=== PATIENT | male | born 1985 | race Caucasian/White ===

== ENCOUNTER 2016-09-01 04:57 | Observation (INO) | payer MEDICAID ==
[~2016-09-01] VITALS: Ht 160 cm; Wt 70.8 kg
[2016-09-01] MEDS ORDERED: NALOXONE 2 MG SYG IV ONE (05:30)
[2016-09-01 05:40] LABS: ADD SCAN DIFF NO; BASOPHILS % 0.3 % (0.0-2.0); EOSINOPHILS # 0.1 10^3/ul (0.0-0.5); EOSINOPHILS % 0.8 % (0.0-7.0); HEMATOCRIT 46.6 % (42.0-52.0); HEMOGLOBIN 14.9 g/dl (14.0-18.0); LYMPHOCYTES % 14.7 % (15.0-51.0); MEAN CORPUSCULAR HEMOGLOBIN 28.7 pg (29.0-33.0); MEAN CORPUSCULAR VOLUME 89.8 fl (82.0-101.0); MEAN PLATELET VOLUME 10.9 fl (7.4-10.4); MONOCYTE # 0.8 10^3/ul (0.3-0.9); MONOCYTES % 6.1 % (0.0-11.0); NEUTROPHIL # 10.4 10^3/ul (1.6-7.5); NEUTROPHILS % 77.8 % (39.0-77.0); PLATELET COUNT 329 10^3/UL (140-415); RED BLOOD COUNT 5.19 10^6/ul (4.70-6.10); RED CELL DISTRIBUTION WIDTH 13.6 % (11.5-14.5); WHITE BLOOD COUNT 13.4 10^3/ul (4.8-10.8)
[2016-09-01 05:43] LABS: ADD UMIC NO; URINE BILIRUBIN (Dip) NEGATIVE (NEGATIVE); URINE BLOOD (Dip) NEGATIVE (NEGATIVE); URINE COLOR LT. YELLOW (YELLOW); URINE GLUCOSE (Dip) NEGATIVE (NEGATIVE); URINE KETONES (Dip) TRACE (NEGATIVE); URINE LEUKOCYTE ESTERASE (Dip) NEGATIVE (NEGATIVE); URINE NITRITE (Dip) NEGATIVE (NEGATIVE); URINE TOTAL PROTEIN (Dip) NEGATIVE (NEGATIVE); URINE UROBILINOGEN (Dip) 0.2 E.U./dL (0.1-1.0)
[2016-09-01 05:54] LABS: INR 1.02; PARTIAL THROMBOPLASTIN TIME 27.6 Sec (25.0-35.0); PROTIME 13.4 Sec (12.2-14.2)
[2016-09-01 06:19] LABS: ALBUMIN 4.5 g/dl (3.3-4.9)
[2016-09-01 06:20] LABS: CHLORIDE 104 mmol/L (97-110); POTASSIUM 4.2 mmol/L (3.5-5.1); SODIUM 146 mmol/L (135-144)
[2016-09-01 06:22] LABS: ALANINE AMINOTRANSFERASE 47 IU/L (13-69); ALBUMIN/GLOBULIN RATIO 1.02; ALKALINE PHOSPHATASE 125 IU/L (42-121); ANION GAP 28 (8-16); ASPARTATE AMINO TRANSFERASE 66 IU/L (15-46); BILIRUBIN,INDIRECT 0.4 mg/dl (0-1.1); BILIRUBIN,TOTAL 0.4 mg/dl (0.2-1.3); BLOOD UREA NITROGEN 25 mg/dl (7-20); CARBON DIOXIDE 18 mmol/L (21-31); CREATININE 1.15 mg/dl (0.61-1.24); TOTAL PROTEIN 8.9 g/dl (6.1-8.1)
[2016-09-01 06:23] LABS: CALCIUM 9.7 mg/dl (8.4-10.2); GLUCOSE 156 mg/dl (70-220)
[2016-09-01 06:26] LABS: ACETAMINOPHEN < 10.0 ug/ml (10.0-30.0); SALICYLATE < 1.0 mg/dl (5.0-30.0)
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
[2016-09-01] MEDS ORDERED: SOD CHLORIDE 0.9% 1,000 ML IV ONE ×2 (07:00→09:00)
--- NOTE | 2016-09-01 07:01 | RADRPT ---
PROCEDURE: CT brain without contrast. CLINICAL INDICATION: Altered level of consciousness. TECHNIQUE: CT scan of the brain was performed on a multi-detector high-resolution CT scanner. Co ntiguous axial images were obtained from the skull base to the vertex without intravenous contrast. Coronal and sagittal reformatted images were also obtained. Images were reviewed on the PACS works [employer]. One or more of the following dose reduction techniques were used: - Automated exposure control. - Adjustment of the mA and/or kV according to patient size. - Use of iterative reconstruction technique. Exam CTD/vol = 42.93 mGy. Total exam DLP = 720.23 mGy-cm. COMPARISON: None. FINDINGS: The ventricles and cortical sulci are within normal limits for patient's age. There are no areas of abnormal attenuation within the brain parenchyma. There is no mass effect or midline shift. There is no intracranial hemorrhage or abnormal extra-axial collection. There is a defect of the right frontal skull which could be postsurgical. There is no evidence of f racture. Visualized paranasal sinuses and mastoid air cells are clear. IMPRESSION: No acute intracranial abnormality identified. .Carmelo Roman MD, MD Date Time Electronically viewed and signed by .Carmelo Roman MD, MD on 09/01/2016 07:01 .T/
[2016-09-01 07:05] LABS: BARBITURATES Negative (NEGATIVE); BENZODIAZEPINES Negative (NEGATIVE); CANNABINOIDS Negative (NEGATIVE); COCAINE Negative (NEGATIVE); OPIATES Negative (NEGATIVE)
--- NOTE | 2016-09-01 07:13 | RADRPT ---
PROCEDURE: Chest. CLINICAL INDICATION: Chest pain. TECHNIQUE: Single frontal view of the chest was obtained. COMPARISON: None. FINDINGS: The cardiac silhouette is within normal limits. The aortic arch is unremarkable. There is no focal consolidation, vascular congestion or pleural effusion. There is no pneumothorax. IMPRESSION: No evidence for active cardiopulmonary disease. .Carmelo Roman MD, MD Date Time Electronically viewed and signed by .Carmelo Roman MD, on 09/01/2016 07:13 .T/
[2016-09-01] MEDS ORDERED: SOD CHLORIDE 0.9% IVPB ONE (07:30)
[2016-09-01] MEDS ORDERED: FOMEPIZOLE IVPB ONE (07:30)
[2016-09-01 10:43] LABS: CREATININE 0.78 mg/dl (0.61-1.24)
[2016-09-01 10:44] LABS: CALCIUM 7.7 mg/dl (8.4-10.2)
[2016-09-01 11:08] LABS: AADO2 Arterial 2.2 mmHg (7.0-24.0); Allen Test ACCEPTAB; Arterial Base Excess -8.5 mmol/L (-3.0-3); Arterial COHb 0.3 % (0.0-3.0); Arterial Fraction of Oxyhgb 96.3 % (93.0-99.0); Arterial HCO3 17.8 mmol/L (22.0-26.0); Arterial MetHb 0.3 % (0.0-1.5); MODE ROOM AIR
[2016-09-01] MEDS ORDERED: ONDANSETRON 4 MG INJ IV PRN ×2 (15:30→16:00)
[2016-09-01] MEDS ORDERED: ACETAMINOPHEN 325 MG TAB PO PRN ×2 (15:30→16:00)
[2016-09-01 16:00] VITALS: TEMP 98.1
[2016-09-01] MEDS ORDERED: HYDROCODONE/APAP (5/325) TAB PO PRN (16:00)
[2016-09-01] MEDS ORDERED: NACL 0.9% 3 ML SYG IV SCH (16:00)
[2016-09-01] MEDS ORDERED: LORAZEPAM 2 MG INJ IV PRN (16:00)
[2016-09-01] MEDS ORDERED: morphine 2 MG INJ IV PRN (16:00)
[2016-09-01] MEDS: SOD CHLORIDE 0.9% 1,000 ML IV SCH (16:12)
[2016-09-01 16:27] LABS: CREATININE 0.95 mg/dl (0.61-1.24)
[2016-09-01 16:28] LABS: CALCIUM 8.6 mg/dl (8.4-10.2); CHOL/HDL RATIO 2.7 RATIO
[2016-09-01 16:36] LABS: POTASSIUM 4.9 mmol/L (3.5-5.1)
[2016-09-01 16:45] LABS: CREATINE KINASE 228 IU/L (23-200); PHOSPHORUS 5.3 mg/dl (2.5-4.9)
[2016-09-01 16:46] LABS: MAGNESIUM 2.7 mg/dl (1.7-2.5)
[2016-09-01 16:56] LABS: B-TYPE NATRIURETIC PEPTIDE 18 PG/ML (0-125)
[2016-09-01 16:59] LABS: CK-MB 3.47 ng/ml (0.0-2.4)
[2016-09-01 17:00] LABS: TROPONIN-I < 0.012 ng/ml (0.00-0.12)
[2016-09-01 17:17] LABS: THYROID STIMULATING HORMONE 0.364 MIU/L (0.465-4.680)
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
[2016-09-01 20:20] VITALS: BP 132/80; RESP 19
[2016-09-01 20:21] VITALS: PULSE 76
[2016-09-01] MEDS: CHLORDIAZEPOXIDE 25 MG CAP PO SCH (21:00)
[2016-09-01 21:41] VITALS: Ht 160 cm; Wt 70.8 kg
[2016-09-02] VITALS (10 sets, daily range): BP systolic 102–134; BP diastolic 56–83; PULSE 76–92; RESP 18–20
[2016-09-02] MEDS: SOD CHLORIDE 0.9% 1,000 ML IV SCH ×2 (02:45→11:33)
[2016-09-02] MEDS: PANTOPRAZOLE (EC) 40 MG TAB PO SCH (06:37)
[2016-09-02 08:05] LABS: ADD SCAN DIFF NO
[2016-09-02 08:07] LABS: BASOPHILS % 0.4 % (0.0-2.0); EOSINOPHILS # 0.1 10^3/ul (0.0-0.5); EOSINOPHILS % 0.8 % (0.0-7.0); HEMATOCRIT 37.2 % (42.0-52.0); HEMOGLOBIN 11.9 g/dl (14.0-18.0); LYMPHOCYTES # 1.8 10^3/ul (0.8-2.9); LYMPHOCYTES % 23.4 % (15.0-51.0); MEAN CORPUSCULAR VOLUME 90.7 fl (82.0-101.0); MEAN PLATELET VOLUME 11.1 fl (7.4-10.4); MONOCYTE # 0.7 10^3/ul (0.3-0.9); MONOCYTES % 9.5 % (0.0-11.0); NEUTROPHILS % 65.6 % (39.0-77.0); PLATELET COUNT 266 10^3/UL (140-415); RED CELL DISTRIBUTION WIDTH 14.1 % (11.5-14.5); WHITE BLOOD COUNT 7.6 10^3/ul (4.8-10.8)
[2016-09-02 08:39] LABS: ALBUMIN 3.4 g/dl (3.3-4.9); POTASSIUM 4.1 mmol/L (3.5-5.1)
[2016-09-02 08:41] LABS: BILIRUBIN,INDIRECT 0.3 mg/dl (0-1.1); BILIRUBIN,TOTAL 0.3 mg/dl (0.2-1.3); CREATININE 0.94 mg/dl (0.61-1.24); MAGNESIUM 2.4 mg/dl (1.7-2.5); PHOSPHORUS 4.3 mg/dl (2.5-4.9)
[2016-09-02 08:42] LABS: ALBUMIN/GLOBULIN RATIO 1.21; CALCIUM 8.8 mg/dl (8.4-10.2); TOTAL PROTEIN 6.2 g/dl (6.1-8.1)
[2016-09-02] MEDS: CHLORDIAZEPOXIDE 25 MG CAP PO SCH ×3 (08:53→21:14)
[2016-09-02 09:17] LABS: TROPONIN-I < 0.012 ng/ml (0.00-0.12)
[2016-09-02] MEDS: MULTIVITAMINS 10 ML, THIAMINE 100 MG, FOLIC ACID 1 MG in SOD CHLORIDE 0.9% 1,000 ML IVPB SCH (12:10)
--- NOTE | 2016-09-02 13:10 | PN ---
Date/Time of Note Date/Time of Note DATE: 09/02/16 TIME: 13:10 Assessment/Plan VTE Prophylaxis VTE Prophylaxis Intervention: SCD's Lines/Catheters IV C[facility]ter Type (from [facility]): Peripheral IV Urinary Cath still in place: No Assessment/Plan Chief Complaint/Hosp Course 1. Polysubstance intoxication. Status post fomepizole as per recommendations from Poison Control. The patient's renal function and LFTs within normal limits. 2. Intentional overdose. Suicidal ideation. The patient has a 1:1 sitter. Psychiatric evaluation ordered. Social work on the case. The patient is medically stable to be transferred to psych facility. 3. Alcohol abuse. The patient will be maintained on a daily banana bag. The patient will be maintained on tapering dose of Librium. The patient will also be maintained on p.r.n. IV benzodiazepines for any delirium tremens. 4. Metabolic acidosis. Most probably secondary to #1. Resolved. 5. Leukocytosis, most probably reactive in nature. Resolved. 6. Fluids, electrolytes, and nutrition. Regular diet. 7. DVT prophylaxis. Bilateral sickle cell admission devices. 8. Gastroesophageal prophylaxis. Proton pump inhibitors. 9. Plan. The patient is medically stable to be transferred to a psych facility. May be transferred to medical surgical unit. Case discussed with Dr. Iraheta. Problems: Subjective 24 Hr Interval Summary Free Text/Dictation Complains of some pleuritic chest pain. Denies any nausea or vomiting. Vital signs have been stable. Exam/Review of Systems Vital Signs Vitals Vital Signs Date Time Temp Pulse Resp B/P Pulse Ox O2 Delivery O2 Flow Rate FiO2 09/02/16 12:45 98.3 86 20 123/65 98 09/01/16 19:38 Room Air Intake and Output 09/01/16 09/01/16 09/02/16 15:00 23:00 07:00 Intake Total 500 ml Balance 500 ml Exam GENERAL: This is a well-built, well-nourished male lying in bed in no apparent distress. HEENT: Head normocephalic and atraumatic. Eyes: Anicteric sclerae. Conjunctivae pink. ENT: Nasal septum is midline. Oral mucosa is dry. NECK: Supple. No JVD noticed. RESPIRATORY: Bilaterally clear to auscultation. No adventitious breath sounds heard. No use of accessory muscles for respiration. CARDIAC: Regular rate and rhythm. No murmurs heard. GASTROINTESTINAL: Abdomen soft, nontender and nondistended. Bowel sounds positive in all 4 quadrants. GENITOURINARY: Deferred. EXTREMITIES: No cyanosis, no clubbing, no edema. Peripheral pulses palpable. NEUROLOGIC: The patient is awake and alert and oriented to place and person. No focal deficits. Results Result Diagram: 09/02/16 0650 09/02/16 0650 Results 24 hrs Laboratory Tests Test 09/01/16 15:45 09/01/16 15:50 09/02/16 06:50 Sodium Level 147 H 143 Potassium Level 4.9 4.1 Chloride Level 110 113 H Carbon Dioxide Level 24 22 Anion Gap 18 H 12 Blood Urea Nitrogen 17 15 Creatinine 0.95 0.94 Glucose Level 94 96 Lactic Acid Level 1.2 0.8 Calcium Level 8.6 8.8 Phosphorus Level 5.3 H 4.3 Magnesium Level 2.7 H 2.4 Creatine Kinase 228 H Creatine Kinase Index 1.5 Creatinine Kinase MB (Mass) 3.47 H Troponin I < 0.012 < 0.012 B-Type Natriuretic Peptide 18 Triglycerides Level 34 Cholesterol Level 178 LDL Cholesterol, Calculated 107 HDL Cholesterol 64 H Cholesterol/HDL Ratio 2.7 Vitamin D 1,25-Dihydroxy 48.1 Thyroid Stimulating Hormone (TSH) 0.364 L Free Thyroxine 1.95 Hemoglobin A1c 5.9 White Blood Count 7.6 # Red Blood Count 4.10 #L Hemoglobin 11.9 #L Hematocrit 37.2 #L Mean Corpuscular Volume 90.7 Mean Corpuscular Hemoglobin 29.0 Mean Corpuscular Hemoglobin Concent 32.0 Red Cell Distribution Width 14.1 Platelet Count 266 Mean Platelet Volume 11.1 H Neutrophils % 65.6 Lymphocytes % 23.4 Monocytes % 9.5 Eosinophils % 0.8 Basophils % 0.4 Nucleated Red Blood Cells % 0.0 Neutrophils # 5.0 Lymphocytes # 1.8 Monocytes # 0.7 Eosinophils # 0.1 Basophils # 0.0 Nucleated Red Blood Cells # 0.0 Total Bilirubin 0.3 Direct Bilirubin 0.00 Indirect Bilirubin 0.3 Aspartate Amino Transf (AST/SGOT) 30 # Alanine Aminotransferase (ALT/SGPT) 40 Alkaline Phosphatase 66 Total Protein 6.2 # Albumin 3.4 # Globulin 2.80 Albumin/Globulin Ratio 1.21 Medications Medications Current Medications Sodium Chloride (NS) 1,000 ml @ 100 mls/hr Q10H IV Last administered on 02:45; Admin Dose 100 MLS/HR; Start 09/01/16 at 15:33 Ondansetron HCl (Zofran Inj) 4 mg Q6H PRN IV NAUSEA AND/OR VOMITING; Start at 16:00 Acetaminophen (Tylenol Tab) 650 mg Q6H PRN PO PAIN LEVEL 1-3 OR FEVER; Start at 16:00 Acetaminophen/ Hydrocodone Bitart (Sutton (5/325)) 1 tab Q6H PRN PO PAIN LEVEL 4 -6; Start 09/01/16 at 16:00 Morphine Sulfate (morphine) 2 mg Q4H PRN IV PAIN LEVEL 7-10; Start 09/01/16 at 16:00 Pantoprazole (Protonix Tab) 40 mg DAILY@06 PO Last administered on 09/02/16 06 :37; Admin Dose 40 MG; Start 09/02/16 at 06:00 Chlordiazepoxide (Librium) 25 mg TID PO Last administered on 09/02/16 08:53; Admin Dose 25 MG; Start 09/01/16 at 21:00 Lorazepam 1 mg 1 mg Q2H PRN IV Anxiety; Start 09/01/16 at 16:00 Multivitamins/ Thiamine HCl/ Folic Acid/Sodium Chloride (Mvi-12 Adult/ Vitamin B1/Folic Acid/NS) 1,011.2 ml @ 125 mls/ hr DAILY@09 IVPB Last administered on 09/02/16 12:10; Admin Dose 125 MLS/HR; Start 09/02/16 at 09:00 Influenza Virus Vaccine (Fluzone) 0.5 ml ONCE ONCE IM* ; Start 09/03/16 at 09:00 ; Stop 09/03/16 at 09:01 MICHAEL DEL VALLE NP Sep 02, 2016 13:10
--- NOTE | 2016-09-02 16:48 | PSY ---
Date/Time of Note Date/Time of Note DATE: 09/02/16 TIME: 16:30 Psychiatric Subjective Eval Consent Pt consented to telemedicine: Yes Subjective Evaluation Patient location: inpatient Chief Complaint: BIBA RA90, ETOH intoxication,intentional overdose Reason for consult: s/p intentional overdose History of present illness Per RN, patient with no PMH or psychiatric history presented after he had locked himself in the bathroom and had overdosed on Colace, Zofran and Motrin. Family found that he had drank ETOH and discovered the empty pill bottles. Today, on telepsych, patient states that he was feeling depressed and helpless after being released from custodial 7 months ago. He denies wanting to end his life and that he took the pills because he was stressed out. Reports that he is feeling better today and regrets his actions. States he realizes that he needs to be there for his 3 kids. He endorses a history of depression but denied any historical or acute symptoms of lindsay or psychosis. 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 Psychiatric Objective Eval Review of Systems: Review of Systems: Not Applicable Physical Examination: Sleep: Insomnia Appetite: Adequate Energy: Adequate Interest: Adequate Mental Status Examination: Appearance: Groomed Eye Contact: Fair Psychomotor Activity: Normal Behavior: Cooperative Speech: Clear AFFECT: Appropriate Mood: Depressed Though Process: Linear Thought Content: Normal Suicidal: No Homicidal: No Orientation: x3 Cognition: Alert Insight: Mild Judgement: Mild Laboratory Results Laboratory Tests Test 09/01/16 05:17 09/01/16 05:18 09/01/16 05:20 09/01/16 06:58 White Blood Count 13.410^3/ul Red Blood Count 5.1910^6/ul Hemoglobin 14.9g/dl Hematocrit 46.6% Mean Corpuscular Volume 89.8fl Mean Corpuscular Hemoglobin 28.7pg Mean Corpuscular Hemoglobin Concent 32.0g/dl Red Cell Distribution Width 13.6% Platelet Count 62130^3/UL Mean Platelet Volume 10.9fl Neutrophils % 77.8% Lymphocytes % 14.7% Monocytes % 6.1% Eosinophils % 0.8% Basophils % 0.3% Nucleated Red Blood Cells % 0.0/100WBC Neutrophils # 10.410^3/ul Lymphocytes # 2.010^3/ul Monocytes # 0.810^3/ul Eosinophils # 0.110^3/ul Basophils # 0.010^3/ul Nucleated Red Blood Cells # 0.010^3/ul Bedside Glucose 148mg/dL Prothrombin Time 13.4Sec Prothrombin Time Ratio 1.0 INR International Normalized Ratio 1.02 Activated Partial Thromboplast Time 27.6Sec Urine Color LT. YELLOW Urine Clarity CLEAR Urine pH 5.5 Urine Specific [place] 1.025 Urine Ketones TRACE Urine Nitrite NEGATIVE Urine Bilirubin NEGATIVE Urine Urobilinogen 0.2 E.U./dL Urine Leukocyte Esterase NEGATIVE Urine Hemoglobin NEGATIVE Urine Glucose NEGATIVE% Urine Total Protein NEGATIVE Sodium Level 146mmol/L Potassium Level 4.2mmol/L Chloride Level 104mmol/L Carbon Dioxide Level 18mmol/L Anion Gap 28 Blood Urea Nitrogen 25mg/dl Creatinine 1.15mg/dl Glucose Level 156mg/dl Osmolality 308mOsm/kg Calcium Level 9.7mg/dl Total Bilirubin 0.4mg/dl Direct Bilirubin 0.00mg/dl Indirect Bilirubin 0.4mg/dl Aspartate Amino Transf (AST/SGOT) 66IU/L Alanine Aminotransferase (ALT/SGPT) 47IU/L Alkaline Phosphatase 125IU/L Total Protein 8.9g/dl Albumin 4.5g/dl Globulin 4.40g/dl Albumin/Globulin Ratio 1.02 Salicylates Level < 1.0mg/dl Urine Opiates Screen Negative Acetaminophen Level < 10.0ug/ml Urine Barbiturates Negative Urine Amphetamines Screen POSITIVE Urine Benzodiazepines Screen Negative Urine Cocaine Screen Negative Urine Cannabinoids Negative Ethyl Alcohol Level 26.0mg/dl Lactic Acid Level 3.2mmol/L Test 09/01/16 08:34 09/01/16 10:09 09/01/16 15:45 09/01/16 15:50 Blood Gas Specimen Source Blood arterial Arterial Blood Date Drawn 09/01/2016 9:55:00 AM Arterial Blood pH (Temp corrected) 7.273 Arterial Blood pCO2 (Temp correct) 39.3mmhg Arterial Blood pO2 (Temp corrected) 100.5mmHG Arterial Blood HCO3 17.8mmol/L Arterial Blood Base Excess -8.5mmol/L Arterial Blood Oxygen Saturation 96.9mmHG Conrad Test ACCEPTAB Arterial Blood Gas Puncture Site Right Radial Arterial Blood Carboxyhemoglobin 0.3% Arterial Blood Methemoglobin 0.3% Blood Gas A-a O2 Differential 2.2mmHg Oxyhemoglobin Percent 96.3% Total Hemoglobin 14.0g/dl Blood Gas Temperature 37.0C Blood Gas Modality ROOM AIR FiO2 21.0% Blood Gas Critical Value Read Back DR. CAMACHO Blood Gas Notified Whom [facility] Blood Gas Notified Time 09/01/2016 10:57:56 AM Sodium Level 143mmol/L 147mmol/L Potassium Level 4.0mmol/L 4.9mmol/L Chloride Level 112mmol/L 110mmol/L Carbon Dioxide Level 19mmol/L 24mmol/L Anion Gap 16 18 Blood Urea Nitrogen 19mg/dl 17mg/dl Creatinine 0.78mg/dl 0.95mg/dl Glucose Level 122mg/dl 94mg/dl Calcium Level 7.7mg/dl 8.6mg/dl Lactic Acid Level 1.2mmol/L Phosphorus Level 5.3mg/dl Magnesium Level 2.7mg/dl Creatine Kinase 228IU/L Creatine Kinase Index 1.5 Creatinine Kinase MB (Mass) 3.47ng/ml Troponin I < 0.012ng/ml B-Type Natriuretic Peptide 18PG/ML Triglycerides Level 34mg/dl Cholesterol Level 178mg/dl LDL Cholesterol, Calculated 107mg/dl HDL Cholesterol 64mg/dl Cholesterol/HDL Ratio 2.7RATIO Vitamin D 1,25-Dihydroxy 48.1ng/ml Thyroid Stimulating Hormone (TSH) 0.364MIU/L Free Thyroxine 1.95ng/dl Hemoglobin A1c 5.9% Test 09/02/16 06:50 White Blood Count 7.610^3/ul Red Blood Count 4.1010^6/ul Hemoglobin 11.9g/dl Hematocrit 37.2% Mean Corpuscular Volume 90.7fl Mean Corpuscular Hemoglobin 29.0pg Mean Corpuscular Hemoglobin Concent 32.0g/dl Red Cell Distribution Width 14.1% Platelet Count 61176^3/UL Mean Platelet Volume 11.1fl Neutrophils % 65.6% Lymphocytes % 23.4% Monocytes % 9.5% Eosinophils % 0.8% Basophils % 0.4% Nucleated Red Blood Cells % 0.0/100WBC Neutrophils # 5.010^3/ul Lymphocytes # 1.810^3/ul Monocytes # 0.710^3/ul Eosinophils # 0.110^3/ul Basophils # 0.010^3/ul Nucleated Red Blood Cells # 0.010^3/ul Sodium Level 143mmol/L Potassium Level 4.1mmol/L Chloride Level 113mmol/L Carbon Dioxide Level 22mmol/L Anion Gap 12 Blood Urea Nitrogen 15mg/dl Creatinine 0.94mg/dl Glucose Level 96mg/dl Lactic Acid Level 0.8mmol/L Calcium Level 8.8mg/dl Phosphorus Level 4.3mg/dl Magnesium Level 2.4mg/dl Total Bilirubin 0.3mg/dl Direct Bilirubin 0.00mg/dl Indirect Bilirubin 0.3mg/dl Aspartate Amino Transf (AST/SGOT) 30IU/L Alanine Aminotransferase (ALT/SGPT) 40IU/L Alkaline Phosphatase 66IU/L Troponin I < 0.012ng/ml Total Protein 6.2g/dl Albumin 3.4g/dl Globulin 2.80g/dl Albumin/Globulin Ratio 1.21 Assessment and Plan Assessment/Diagnosis [place] I: Unspecified depressive disorder [place] II: deferred [place] III: see medical chart [place] IV: lack of social support [place] V: GAF 60 Recommendation/Plan Medication Management Recommend starting Zoloft 50mg qday Pt. Caregiver/Family Education Recommend SW touch base with family to ensure family feels safe to have patient return and can monitor for his safety and makre sure he connects with outpatient Follow-up/Disposition At this time, patient does NOT meet 5150 hold criteria. He is cooperative with treatment with no acute SI/HI. Despite his recent attempt, he is now displaying goal directed and future oriented thinking, being compliant with mental health treatment as well as citing his 3 kids as protective factors. 1) if SW confirms patient is safe to return home per family, recommend patient be discharged back home with outpatient referrals 2) if patient unable to return home, would recommend a re-consult at that point [id number] Recommendation: NO Hold, unless patient attempts to leave AMA LEWIS HADLEY MD Sep 02, 2016 16:40
[2016-09-03] MEDS: PANTOPRAZOLE (EC) 40 MG TAB PO SCH (05:04)
[2016-09-03 05:56] LABS: ADD SCAN DIFF NO
[2016-09-03 06:18] LABS: ALBUMIN 3.4 g/dl (3.3-4.9); POTASSIUM 3.2 mmol/L (3.5-5.1)
[2016-09-03 06:19] LABS: BASOPHILS % 0.4 % (0.0-2.0); EOSINOPHILS # 0.2 10^3/ul (0.0-0.5); EOSINOPHILS % 2.6 % (0.0-7.0); HEMATOCRIT 36.6 % (42.0-52.0); HEMOGLOBIN 11.7 g/dl (14.0-18.0); LYMPHOCYTES # 2.7 10^3/ul (0.8-2.9); LYMPHOCYTES % 39.1 % (15.0-51.0); MEAN CORPUSCULAR HEMOGLOBIN 28.7 pg (29.0-33.0); MEAN CORPUSCULAR VOLUME 89.9 fl (82.0-101.0); MEAN PLATELET VOLUME 11.4 fl (7.4-10.4); MONOCYTE # 0.5 10^3/ul (0.3-0.9); MONOCYTES % 7.8 % (0.0-11.0); NEUTROPHIL # 3.5 10^3/ul (1.6-7.5); PLATELET COUNT 251 10^3/UL (140-415); RED BLOOD COUNT 4.07 10^6/ul (4.70-6.10); RED CELL DISTRIBUTION WIDTH 13.7 % (11.5-14.5); WHITE BLOOD COUNT 6.9 10^3/ul (4.8-10.8)
[2016-09-03 06:21] LABS: ALBUMIN/GLOBULIN RATIO 1.06; BILIRUBIN,INDIRECT 0.2 mg/dl (0-1.1); BILIRUBIN,TOTAL 0.2 mg/dl (0.2-1.3); CALCIUM 8.7 mg/dl (8.4-10.2); CREATININE 0.82 mg/dl (0.61-1.24); TOTAL PROTEIN 6.6 g/dl (6.1-8.1)
[2016-09-03 07:55] VITALS: BP 120/70; RESP 18
[2016-09-03] MEDS: CHLORDIAZEPOXIDE 25 MG CAP PO SCH ×2 (08:40→13:53)
[2016-09-03] MEDS: MULTIVITAMINS 10 ML, THIAMINE 100 MG, FOLIC ACID 1 MG in SOD CHLORIDE 0.9% 1,000 ML IVPB SCH (08:40)
[2016-09-03] MEDS ORDERED: INFLUENZA VIRUS VACCINE 0.5 ML (DISPENSING) IM* ONE (09:00)
[2016-09-03] MEDS ORDERED: SERTRALINE 50 MG TAB PO SCH (09:00)
[2016-09-03] MEDS ORDERED: Sertraline PO (10:32)
--- NOTE | 2016-09-03 10:33 | PDOCDIS ---
Discharge Instructions DIAGNOSIS Discharge Diagnosis: 1. polysubstance intoxication 2. intentional overdose 3. alcohol abuse CONDITION Patient Condition: Stable HOME CARE INSTRUCTIONS: Special Diet: REGULAR FOLLOW UP/APPOINTMENTS Appointments 1. Follow up with your primary care provider in one week STACI RICHARDS Sep 03, 2016 10:33
--- NOTE | 2016-09-13 22:08 | DS ---
DATE OF ADMISSION: 09/01/2016 DATE OF DISCHARGE: 09/03/2016 DISCHARGE DIAGNOSES: 1. Polysubstance intoxication. 2. Intentional overdose. 3. Alcohol abuse. 4. Metabolic acidosis secondary to the above. HISTORY OF PRESENT ILLNESS: This is a 31-year-old male with no reported past medical history who was brought into [facility] secondary to intentional alcohol intoxication and overdose on home medications. Of note, the patient was noted to be incarcerated in the last year. He does reportedly drink alcohol and does abuse unknown drugs on a daily basis. It was noted that on 08/31/2016, the patient was noticed to be drinking alcohol around 1:00 a.m., and the patient had locked himself in his bathroom. When the bathroom was broken into, the patient's mother had noticed empty bottles of Zofran, Phenylephrine, Colace, ibuprofen and unknown other pill medications. After 3 hours of this, he started to vomit and was brought to [facility] for further evaluation. The patient had reportedly been depressed because he had wanted to see his children but does not live with them. No other reported hospitalization, any mental facility secondary to mental disorder. The patient was positive for amphetamines on admission to the hospital with an alcohol level of 26. He was also noted with his metabolic acidosis, pH being at 7.273 and bicarbonate of 17.8. Poison control was immediately contacted. The patient did receive one dose of fomepizole. Repeat metabolic panel did show improvement of his acidosis. Due to the aforementioned issues, he was also seen by psychiatric information technology consultant Dr. Chemo Esquivel. He was monitored for possible suicidal ideation and intent. After review by telepsychiatrist, he did not meet any 5150 hold. He was cooperative with his treatment with no reported suicidal ideation. Despite his drug overdose, during his admission, he did display goal directed and future oriented thinking and compliance with his mental health treatment. During the course of his stay, he did improve. We did prescribe the patient Zoloft on discharge, and he was seen by child welfare social worker and provided with rehab services. The plan of care was discussed with the patient, and the patient did verbalize understanding. On the day of discharge, the patient was in stable condition. DISCHARGE PHYSICAL EXAMINATION: VITAL SIGNS: Stable. Condition: Stable. DISCHARGE PLAN: 1. Condition is stable. Diet is regular. 2. The patient to follow up with primary care provider within a week. DISCHARGE MEDICATIONS: Sertraline 50 mg p.o. daily. DISCHARGE PROCESS TIME: 40 minutes. Discussed plan of care with Dr. Navarro. Dictated By: STACI RICHARDS NP for SARAH RICHMOND/AGNELA Conf#: [id number] DID#: [id number] MTDD
== END 2016-09-03 17:15 | disposition home or self-care (01) ==
LOC: E/R 04:57 → UNDOADMOB 15:03 → MS4 15:03 → PP2 09-02 20:15
PROVIDERS: ADMIT Family Medicine; ATTEND Family Medicine
DX: T45.0X2A Poisoning by antiallergic and antiemetic drugs, intentional self-harm, initial encounter (principal); T47.4X2A Poisoning by other laxatives, intentional self-harm, initial encounter; T44.4X2A Poisoning by predominantly alpha-adrenoreceptor agonists, intentional self-harm, initial encounter; Y92.091 Bathroom in other non-institutional residence as the place of occurrence of the external cause; F10.129 Alcohol abuse with intoxication, unspecified; F19.90 Other psychoactive substance use, unspecified, uncomplicated; E87.2 Acidosis; D72.829 Elevated white blood cell count, unspecified
CPT/HCPCS: 36415; 36600; 70450; 71010; 80048; 80053; 80061; 80306; 80307; 81003; 82550; 82553; 82652; 82803; 82962; 83036; 83605; 83735; 83880; 83930; 84100; 84439; 84443; 84484; 85025; 85610; 85730; 90686; 93005; 96361; 96365; 96366; 96374; 96375; J1451; J2310; J3411; J7030; Z7500; Z7502; Z7610; 99217; G0378